=== PATIENT | male | born 1970 | race Caucasian/White ===

== ENCOUNTER 2023-03-29 10:45 | Outpatient (CLI) | payer MEDICARE, SELFPAY ==
[2023-04-02 15:35] LABS: FSH 14.7
[2023-04-02 15:54] LABS: Testosterone Total 508
[2023-04-02 15:55] LABS: Testosterone Free 68.6
== END 2023-03-29 10:46 | disposition home or self-care (01) ==
LOC: ANHLAB 10:52
PROVIDERS: PCP Family Medicine; Visit Provider Nurse Practitioner Adult Health
DX: N52.9 Male erectile dysfunction, unspecified (principal); R68.82 Decreased libido; R53.1 Weakness; R53.83 Other fatigue
CPT/HCPCS: 36415; 83001; 83002; 84402; 84403